=== PATIENT | male | born 1980 | race Caucasian/White ===

== ENCOUNTER 2019-06-25 10:49 | Emergency (ER) | payer BC, OTHER ==
[~2019-06-25 10:49] MED LIST: EPINEPHrine 1:10,000 1 MG/10 ML Syringe ONE; Midazolam 1 MG/ML 5 ML SDV ONE; Propofol 200 MG/20 ML SDV ONE; Sodium Bicarbonate 8.4% 50 MEQ/50 ML Syringe ONE; Succinylcholine 200 MG/10 ML MDV ONE
[2019-06-25] MEDS ORDERED: Sodium Chloride 0.9% 1,000 ML IV SCH (11:30)
--- NOTE | 2019-06-25 11:32 | EDM.PDOC ---
ED HPI GENERAL MEDICAL PROBLEM - General Chief Complaint: Neurological Problem Stated Complaint: [facility] Time Seen by Provider: 06/25/19 10:50 Source of Information: Reports: EMS, Family History Limitations: Reports: Altered Mental Status (Patient is) - History of Present Illness INITIAL COMMENTS - FREE TEXT/NARRATIVE: 39-year-old male arrives in the ED unresponsive. Apparently family members found him in the basement in his bed and could not arouse him this morning. Apparently he went out for a few drinks last night and no one is sure when he came back home. He shouldn't apparently has leukemia and is currently receiving chemotherapy in [place]. It's unclear at this time what type of leukemia. Also unclear when he last received chemotherapy. Paramedics got a O2 sat of 88- 90% on room air. He had a nasal trumpet inserted and an airway to keep his tongue off the back of his throat. Given supplemental oxygen with bag mask. Patient has shown no signs of life in terms of response to painful stimuli. He appears cool to touch. Heart rate is in the 140s. Blood sugar tested by paramedics was 113 Onset: Today, Unknown/Unsure Duration: Other (Unknown) Location: Reports: Other (Arrives unresponsive.) Quality: Reports: Other (Arrives in the ED and response to painful stimuli) Severity: Severe Improves with: Reports: Other (No response to painful or verbal stimuli.) Context: Reports: Other (Found unresponsive in his bed by family members this morning. Paramedics suggest that he seemed to be having intermittent twitching like he might have been seizure in.). 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 (see below) (Only supplemental oxygen.) - Related Data Allergies Allergy/AdvReac Type Severity Reaction Status Date / Time ampoteracin b Allergy Other Uncoded 06/25/19 11:28 micofungin Allergy Other Uncoded 06/25/19 11:28 Home Meds: Home Meds Acyclovir 400 mg PO BID 06/25/19 [History] Albuterol Sulfate [Albuterol Sulfate Hfa] 2 puff IH DAILY PRN 06/25/19 [History] Baclofen 10 mg PO BID 06/25/19 [History] Doxycycline [Doxycycline Hyclate] 100 mg PO DAILY 06/25/19 [History] Fluticasone Propionate [Flovent HFA] 220 mcg INH BID 06/25/19 [History] Fluticasone/Salmeterol [Advair 250-50 Diskus] 1 each IH BID 06/25/19 [History] Hydrocortisone 10 mg PO BEDTIME 06/25/19 [History] Hydrocortisone 20 mg PO DAILY 06/25/19 [History] LORazepam [Ativan] 0.5 mg PO BID 06/25/19 [History] Metoprolol Succinate 50 mg PO DAILY 06/25/19 [History] Montelukast [Singulair] 10 mg PO DAILY 06/25/19 [History] Ondansetron [Zofran ODT] 4 mg PO Q6H PRN 06/25/19 [History] Posaconazole [Noxafil] 300 mg PO DAILY 06/25/19 [History] Rosuvastatin [Crestor] 5 mg PO DAILY 06/25/19 [History] Ruxolitinib Phosphate [Jakafi] 5 mg PO BID 06/25/19 [History] Sertraline [Zoloft] 150 mg PO DAILY 06/25/19 [History] Sulfamethoxazole/Trimethoprim [Bactrim 400-80 MG] 1 each PO DAILY 06/25/19 [ History] Testosterone 20.25 gm TOP DAILY 06/25/19 [History] Ursodiol 600 mg PO BID 06/25/19 [History] Zolpidem [Ambien] 5 mg PO BEDTIME 06/25/19 [History] buPROPion [Wellbutrin] 75 mg PO BID 06/25/19 [History] oxyCODONE ER [OxyCONTIN] 10 mg PO Q12H PRN 06/25/19 [History] Past Medical History Oncologic (Cancer) History: Reports: Leukemia Social & Family History - Living Situation & Occupation Living situation: Reports: Occupation: Employed ED ROS GENERAL - Review of Systems Review Of Systems: Unable To Obtain (Patient is unresponsive to verbal and physical stimuli.) - Physical Exam Exam: See Below Exam Limited By: Altered Mental Status (Unresponsive to verbal and physical stimuli.) General Appearance: Other (Comatose. Very cool to touch.) Eye Exam: Bilateral Eye: Other (Pupils were 7 mm and equal bilaterally with no gaze palsy. No nystagmus to suggest seizure activity. No response to light stimulation before being paralyzed.) Throat/Mouth: Other (Large tongue. A creamy mucus obscuring the airway and posterior oropharynx which was suctioned before intubation.). No: Normal Oropharynx Head Exam: Atraumatic, Normocephalic, Other Neck: Normal Inspection (No overt signs of head or facial trauma.), Supple, Non- Tender Respiratory/Chest: Respiratory Distress, Other (O2 sats were 88-90% on room air. Breathing very shallowly 19-20/m.) Cardiovascular: No Edema (Sinus tachycardia 1 12/m.), No Gallop, No JVD, No Murmur, No Rub, Tachycardia GI/Abdominal: Distended (No bowel sounds were heard. Abdomen appears distended and is diffusely tympanitic to percussion.), Abnormal Bowel Sounds, Other. No: No Abnormal Bruit, Rigid (Male) Exam: No Hernia Neuro Exam (Abbreviated): Other (Comatose. No response to verbal or physical stimulation.) DTR: 0: Bicep (R), Bicep (L), Tricep (L), Patella (R), Patella (L), Achilles (R) , Achilles (L) Extremities: Normal Inspection, Normal Range of Motion, Non-Tender, Other (No SIGNS OF TRAUMA TO ANY OF HIS EXTREMITIES.) Skin Exam: Cool, Other (Feels cold to touch.) Endotracheal Intubation - Endotracheal Intubation Time of Intubation: 14:15 ET Intubation Indication: Airway Protection Preparation: Suction, Balloon Tested, BVM Set Up, Difficult Airway Equip Airway Assessment: Obese, Large Tongue Pre-Oxygenation: Assisted with BVM, 100% FiO2 Anesthesia Meds: Midazolam (2 mg), Succinylcholine (160 mg) Placement: Orotracheal, Complicated Placement Cords Visualized: Grade 3 (Due to very large tongue) ETT Size In mm: 8.5 Number of Attempts: Other: (4) Confirmed By: CO2 Indicator, Bilateral Breath Sounds, Chest Xray Tube Secured By: By RT Endotracheal Intubation Comment: ET tube tube secured at 25 cm corner of the right lip. Chest x-ray reveals it to be a good 3 cm above the jovany. EKG INTERPRETATION EKG Date: 06/25/19 Time: 12:14 Rhythm: NSR Rate (Beats/Min): 71 [place]: Normal P-Wave: Enlarged (Suspect right atrial enlargement.) QRS: Other (Borderline criteria for left ventricular hypertrophy pattern.) ST-T: Elevated (ST segment is elevated in leads V5 and V6 the apex of the heart. There is otherwise identified few surgery early repolarization pattern which skews the ST segment and I do not believe represents ischemia. Cardiac markers will be assessed.) QT: Normal EKG Interpretation Comments: Borderline ECG Course - Vital Signs Last Recorded V/S: Last Vital Signs Temp 37.0 C 06/25/19 12:29 Pulse 68 06/25/19 12:29 Resp 18 06/25/19 12:29 BP 121/81 06/25/19 12:29 Pulse Ox 100 06/25/19 12:29 - Orders/Labs/Meds Orders: Active Orders 24 hr Category Date Time Status Blood Glucose Check, Bedside [RC] ONETIME Care 06/25/19 11:27 Active EKG Documentation Completion [RC] STAT Care 06/25/19 11:41 Active Chest 1V Frontal [CR] Stat Exams 06/25/19 11:20 Taken CULTURE BLOOD [BC] Stat Lab 06/25/19 12:21 Received CULTURE BLOOD [BC] Stat Lab 06/25/19 12:59 Received Sodium Chloride 0.9% [Normal Saline] 1,000 ml Med 06/25/19 11:30 Active IV ASDIRECTED Blood Culture x2 Reflex Set [OM.PC] Stat Oth 06/25/19 11:27 Ordered Medication Orders Sodium Chloride (Normal Saline) 1,000 mls @ 150 mls/hr IV ASDIRECTED ROSY Last Admin: 06/25/19 11:54 Dose: 150 mls/hr Labs: Laboratory Tests 06/25/19 06/25/19 06/25/19 Range/Units 10:59 10:59 10:59 WBC 10.87 H (4.23-9.07) K/mm3 RBC 4.90 (4.63-6.08) M/mm3 Hgb 16.0 (13.7-17.5) gm/L Hct 49.5 (40.1-51.0) % MCV 101.0 H (79.0-92.2) fl MCH 32.7 H (25.7-32.2) pg MCHC 32.3 (32.2-35.5) g/dl RDW Std Deviation 58.7 H (35.1-43.9) fL Plt Count 384 H (163-337) K/mm3 MPV 9.6 (9.4-12.3) fl Neutrophils % (Manual) 75 H (40-60) % Band Neutrophils % 0 (0-10) % Lymphocytes % (Manual) 12 L (20-40) % Atypical Lymphs % 0 % Monocytes % (Manual) 11 H (2-10) % Eosinophils % (Manual) 2 (0.8-7.0) % Basophils % (Manual) 0 L (0.2-1.2) Platelet Estimate Adequate Poikilocytosis 1+ slight Macrocytosis 2+ moderate RBC Morph Comment Not Reportable ESR (0-15) mm/hr Puncture Site ABG pH (7.35-7.45) ABG pCO2 (35.0-45.0) mmHg ABG pO2 (80.0-100.0) mmHg ABG HCO3 (22.0-26.0) meq/L ABG O2 Saturation (96.0-97.0) % ABG Base Excess (-2-2.0) Abhijit Test A-a Gradient mmHg O2 Delivery Device FiO2 (21.00-100.00) % Tidal Volume cc PEEP cmH20 Sodium 141 (136-145) mEq/L Potassium 5.3 H (3.5-5.1) mEq/L Chloride 103 (98-107) mEq/L Carbon Dioxide 22 (21-32) mEq/L Anion Gap 21.3 H (5-15) BUN 15 (7-18) mg/dL Creatinine 1.3 (0.7-1.3) mg/dL Est Cr Clr Drug Dosing TNP Estimated GFR (MDRD) > 60 (>60) mL/min BUN/Creatinine Ratio 11.5 L (14-18) Glucose 126 H (74-106) mg/dL Serum Osmolality 318 H (280-300) mosm/kg Lactic Acid (0.4-2.0) mmol/L Calcium 9.2 (8.5-10.1) mg/dL Magnesium (1.8-2.4) mg/dl Total Bilirubin 0.3 (0.2-1.0) mg/dL AST 66 H (15-37) U/L ALT 121 H (16-63) U/L Alkaline Phosphatase 81 (46-116) U/L CK-MB (CK-2) (0-3.6) ng/ml Troponin I (0.00-0.056) ng/mL C-Reactive Protein 1.7 H* (<1.0) mg/dL NT-Pro-B Natriuret Pep (0-125) pg/mL Total Protein 8.1 (6.4-8.2) g/dl Albumin 4.2 (3.4-5.0) g/dl Globulin 3.9 gm/dL Albumin/Globulin Ratio 1.1 (1-2) Urine Color (Yellow) Urine Appearance (Clear) Urine pH (5.0-8.0) Ur Specific [place] (1.005-1.030) Urine Protein (Negative) Urine Glucose (UA) (Negative) Urine Ketones (Negative) Urine Occult Blood (Negative) Urine Nitrite (Negative) Urine Bilirubin (Negative) Urine Urobilinogen (0.2-1.0) Ur Leukocyte Esterase (Negative) Urine RBC (0-5) /hpf Urine WBC (0-5) /hpf Ur Squamous Epith Cells (0-5) /hpf Amorphous Sediment (NOT SEEN) /hpf Urine Bacteria (FEW) /hpf Urine Mucus (FEW) /hpf Urine Opiates Screen (LTLMHY=257) Ur Buprenorphine Scrn (CUTOFF=10) Ur Oxycodone Screen (KDE2KM=876) Urine Methadone Screen (ERQ4JS=979) Ur Propoxyphene Screen (YLQHEJ=083) Ur Barbiturates Screen (EBLRSE=088) Ur Tricyclics Screen (NDWDRZ=591) Ur Phencyclidine Scrn (CUTOFF=25) Ur Amphetamine Screen (VFSYSF=414) U Methamphetamines Scrn (YYTZPQ=124) U Benzodiazepines Scrn (RCAVQC=237) U Cocaine Metab Screen (XKHSGM=251) U Marijuana (THC) Screen (CUTOFF=50) Ethyl Alcohol (0.00) gm% Ketones 0.3 (0.0-0.3) mM 06/25/19 06/25/19 06/25/19 Range/Units 10:59 10:59 10:59 WBC (4.23-9.07) K/mm3 RBC (4.63-6.08) M/mm3 Hgb (13.7-17.5) gm/L Hct (40.1-51.0) % MCV (79.0-92.2) fl MCH (25.7-32.2) pg MCHC (32.2-35.5) g/dl RDW Std Deviation (35.1-43.9) fL Plt Count (163-337) K/mm3 MPV (9.4-12.3) fl Neutrophils % (Manual) (40-60) % Band Neutrophils % (0-10) % Lymphocytes % (Manual) (20-40) % Atypical Lymphs % % Monocytes % (Manual) (2-10) % Eosinophils % (Manual) (0.8-7.0) % Basophils % (Manual) (0.2-1.2) Platelet Estimate Poikilocytosis Macrocytosis RBC Morph Comment ESR (0-15) mm/hr Puncture Site ABG pH (7.35-7.45) ABG pCO2 (35.0-45.0) mmHg ABG pO2 (80.0-100.0) mmHg ABG HCO3 (22.0-26.0) meq/L ABG O2 Saturation (96.0-97.0) % ABG Base Excess (-2-2.0) Abhijit Test A-a Gradient mmHg O2 Delivery Device FiO2 (21.00-100.00) % Tidal Volume cc PEEP cmH20 Sodium (136-145) mEq/L Potassium (3.5-5.1) mEq/L Chloride (98-107) mEq/L Carbon Dioxide (21-32) mEq/L Anion Gap (5-15) BUN (7-18) mg/dL Creatinine (0.7-1.3) mg/dL Est Cr Clr Drug Dosing Estimated GFR (MDRD) (>60) mL/min BUN/Creatinine Ratio (14-18) Glucose (74-106) mg/dL Serum Osmolality (280-300) mosm/kg Lactic Acid (0.4-2.0) mmol/L Calcium (8.5-10.1) mg/dL Magnesium 2.3 (1.8-2.4) mg/dl Total Bilirubin (0.2-1.0) mg/dL AST (15-37) U/L ALT (16-63) U/L Alkaline Phosphatase (46-116) U/L CK-MB (CK-2) 18.8 H (0-3.6) ng/ml Troponin I < 0.017 (0.00-0.056) ng/mL C-Reactive Protein (<1.0) mg/dL NT-Pro-B Natriuret Pep 33 (0-125) pg/mL Total Protein (6.4-8.2) g/dl Albumin (3.4-5.0) g/dl Globulin gm/dL Albumin/Globulin Ratio (1-2) Urine Color (Yellow) Urine Appearance (Clear) Urine pH (5.0-8.0) Ur Specific [place] (1.005-1.030) Urine Protein (Negative) Urine Glucose (UA) (Negative) Urine Ketones (Negative) Urine Occult Blood (Negative) Urine Nitrite (Negative) Urine Bilirubin (Negative) Urine Urobilinogen (0.2-1.0) Ur Leukocyte Esterase (Negative) Urine RBC (0-5) /hpf Urine WBC (0-5) /hpf Ur Squamous Epith Cells (0-5) /hpf Amorphous Sediment (NOT SEEN) /hpf Urine Bacteria (FEW) /hpf Urine Mucus (FEW) /hpf Urine Opiates Screen (TNEFIO=876) Ur Buprenorphine Scrn (CUTOFF=10) Ur Oxycodone Screen (FWX7RG=704) Urine Methadone Screen (IRC1NR=262) Ur Propoxyphene Screen (KNZELK=500) Ur Barbiturates Screen (OCDEKQ=857) Ur Tricyclics Screen (GCEAPG=846) Ur Phencyclidine Scrn (CUTOFF=25) Ur Amphetamine Screen (STGDCB=097) U Methamphetamines Scrn (DTYZCT=491) U Benzodiazepines Scrn (SNUTPF=026) U Cocaine Metab Screen (NYMZSB=339) U Marijuana (THC) Screen (CUTOFF=50) Ethyl Alcohol 0.05 (0.00) gm% Ketones (0.0-0.3) mM 06/25/19 06/25/19 06/25/19 Range/Units 11:25 11:35 11:35 WBC (4.23-9.07) K/mm3 RBC (4.63-6.08) M/mm3 Hgb (13.7-17.5) gm/L Hct (40.1-51.0) % MCV (79.0-92.2) fl MCH (25.7-32.2) pg MCHC (32.2-35.5) g/dl RDW Std Deviation (35.1-43.9) fL Plt Count (163-337) K/mm3 MPV (9.4-12.3) fl Neutrophils % (Manual) (40-60) % Band Neutrophils % (0-10) % Lymphocytes % (Manual) (20-40) % Atypical Lymphs % % Monocytes % (Manual) (2-10) % Eosinophils % (Manual) (0.8-7.0) % Basophils % (Manual) (0.2-1.2) Platelet Estimate Poikilocytosis Macrocytosis RBC Morph Comment ESR (0-15) mm/hr Puncture Site Lt radial ABG pH 7.20 L (7.35-7.45) ABG pCO2 55.3 H (35.0-45.0) mmHg ABG pO2 110.0 H (80.0-100.0) mmHg ABG HCO3 20.6 L (22.0-26.0) meq/L ABG O2 Saturation 97.2 H (96.0-97.0) % ABG Base Excess -8.1 L (-2-2.0) Abhijit Test Positive A-a Gradient 179 mmHg O2 Delivery Device Ac FiO2 50.00 (21.00-100.00) % Tidal Volume 650.0 cc PEEP 5.0 cmH20 Sodium (136-145) mEq/L Potassium (3.5-5.1) mEq/L Chloride (98-107) mEq/L Carbon Dioxide (21-32) mEq/L Anion Gap (5-15) BUN (7-18) mg/dL Creatinine (0.7-1.3) mg/dL Est Cr Clr Drug Dosing Estimated GFR (MDRD) (>60) mL/min BUN/Creatinine Ratio (14-18) Glucose (74-106) mg/dL Serum Osmolality (280-300) mosm/kg Lactic Acid (0.4-2.0) mmol/L Calcium (8.5-10.1) mg/dL Magnesium (1.8-2.4) mg/dl Total Bilirubin (0.2-1.0) mg/dL AST (15-37) U/L ALT (16-63) U/L Alkaline Phosphatase (46-116) U/L CK-MB (CK-2) (0-3.6) ng/ml Troponin I (0.00-0.056) ng/mL C-Reactive Protein (<1.0) mg/dL NT-Pro-B Natriuret Pep (0-125) pg/mL Total Protein (6.4-8.2) g/dl Albumin (3.4-5.0) g/dl Globulin gm/dL Albumin/Globulin Ratio (1-2) Urine Color Yellow (Yellow) Urine Appearance Clear (Clear) Urine pH 5.5 (5.0-8.0) Ur Specific [place] 1.010 (1.005-1.030) Urine Protein Negative (Negative) Urine Glucose (UA) Negative (Negative) Urine Ketones Negative (Negative) Urine Occult Blood 1+ H (Negative) Urine Nitrite Negative (Negative) Urine Bilirubin Negative (Negative) Urine Urobilinogen 0.2 (0.2-1.0) Ur Leukocyte Esterase Negative (Negative) Urine RBC 5-10 H (0-5) /hpf Urine WBC 0-5 (0-5) /hpf Ur Squamous Epith Cells 0-5 (0-5) /hpf Amorphous Sediment Few H (NOT SEEN) /hpf Urine Bacteria Few (FEW) /hpf Urine Mucus Moderate H (FEW) /hpf Urine Opiates Screen Negative (FWZKOW=234) Ur Buprenorphine Scrn Negative (CUTOFF=10) Ur Oxycodone Screen Presumptive positive H (PSH2UA=980) Urine Methadone Screen Negative (JDL4GF=428) Ur Propoxyphene Screen Negative (UADTAC=577) Ur Barbiturates Screen Negative (BKZHSZ=371) Ur Tricyclics Screen Presumptive positive H (ILUCNT=879) Ur Phencyclidine Scrn Negative (CUTOFF=25) Ur Amphetamine Screen Negative (ZQNEAK=019) U Methamphetamines Scrn Negative (FMSHDQ=971) U Benzodiazepines Scrn Presumptive positive H (RTWGLR=318) U Cocaine Metab Screen Negative (XIHCNS=049) U Marijuana (THC) Screen Presumptive positive H (CUTOFF=50) Ethyl Alcohol (0.00) gm% Ketones (0.0-0.3) mM 06/25/19 06/25/19 06/25/19 Range/Units 12:32 12:59 12:59 WBC (4.23-9.07) K/mm3 RBC (4.63-6.08) M/mm3 Hgb (13.7-17.5) gm/L Hct (40.1-51.0) % MCV (79.0-92.2) fl MCH (25.7-32.2) pg MCHC (32.2-35.5) g/dl RDW Std Deviation (35.1-43.9) fL Plt Count (163-337) K/mm3 MPV (9.4-12.3) fl Neutrophils % (Manual) (40-60) % Band Neutrophils % (0-10) % Lymphocytes % (Manual) (20-40) % Atypical Lymphs % % Monocytes % (Manual) (2-10) % Eosinophils % (Manual) (0.8-7.0) % Basophils % (Manual) (0.2-1.2) Platelet Estimate Poikilocytosis Macrocytosis RBC Morph Comment ESR 27 H (0-15) mm/hr Puncture Site Rt radial ABG pH 7.32 L (7.35-7.45) ABG pCO2 45.2 H (35.0-45.0) mmHg ABG pO2 101.0 H (80.0-100.0) mmHg ABG HCO3 22.5 (22.0-26.0) meq/L ABG O2 Saturation 97.7 H (96.0-97.0) % ABG Base Excess -3.3 L (-2-2.0) Abhijit Test A-a Gradient 200 mmHg O2 Delivery Device Ac FiO2 50.00 (21.00-100.00) % Tidal Volume 650.0 cc PEEP 5.0 cmH20 Sodium (136-145) mEq/L Potassium (3.5-5.1) mEq/L Chloride (98-107) mEq/L Carbon Dioxide (21-32) mEq/L Anion Gap (5-15) BUN (7-18) mg/dL Creatinine (0.7-1.3) mg/dL Est Cr Clr Drug Dosing Estimated GFR (MDRD) (>60) mL/min BUN/Creatinine Ratio (14-18) Glucose (74-106) mg/dL Serum Osmolality (280-300) mosm/kg Lactic Acid 3.4 H (0.4-2.0) mmol/L Calcium (8.5-10.1) mg/dL Magnesium (1.8-2.4) mg/dl Total Bilirubin (0.2-1.0) mg/dL AST (15-37) U/L ALT (16-63) U/L Alkaline Phosphatase (46-116) U/L CK-MB (CK-2) (0-3.6) ng/ml Troponin I (0.00-0.056) ng/mL C-Reactive Protein (<1.0) mg/dL NT-Pro-B Natriuret Pep (0-125) pg/mL Total Protein (6.4-8.2) g/dl Albumin (3.4-5.0) g/dl Globulin gm/dL Albumin/Globulin Ratio (1-2) Urine Color (Yellow) Urine Appearance (Clear) Urine pH (5.0-8.0) Ur Specific [place] (1.005-1.030) Urine Protein (Negative) Urine Glucose (UA) (Negative) Urine Ketones (Negative) Urine Occult Blood (Negative) Urine Nitrite (Negative) Urine Bilirubin (Negative) Urine Urobilinogen (0.2-1.0) Ur Leukocyte Esterase (Negative) Urine RBC (0-5) /hpf Urine WBC (0-5) /hpf Ur Squamous Epith Cells (0-5) /hpf Amorphous Sediment (NOT SEEN) /hpf Urine Bacteria (FEW) /hpf Urine Mucus (FEW) /hpf Urine Opiates Screen (NVWCGG=679) Ur Buprenorphine Scrn (CUTOFF=10) Ur Oxycodone Screen (UUY2YT=848) Urine Methadone Screen (TQP3UR=354) Ur Propoxyphene Screen (HZBYFO=724) Ur Barbiturates Screen (NUNVGY=163) Ur Tricyclics Screen (XBDMIZ=212) Ur Phencyclidine Scrn (CUTOFF=25) Ur Amphetamine Screen (WWDFOI=544) U Methamphetamines Scrn (QDJMMP=036) U Benzodiazepines Scrn (NYVGCM=557) U Cocaine Metab Screen (EXPCQR=131) U Marijuana (THC) Screen (CUTOFF=50) Ethyl Alcohol (0.00) gm% Ketones (0.0-0.3) mM Meds: Medications Generic Name Dose Route Start Last Admin Trade Name Freq PRN Reason Stop Dose Admin Sodium Chloride 1,000 mls @ 150 mls/hr 06/25/19 11:30 06/25/19 11:54 Normal Saline IV 150 mls/hr ASDIRECTED ROSY Administration Discontinued Medications Generic Name Dose Route Start Last Admin Trade Name Freq PRN Reason Stop Dose Admin Hydrocortisone Sodium Succinate 100 mg 06/25/19 12:28 06/25/19 12:37 Solu-Cortef IVPUSH 06/25/19 12:29 100 mg ONETIME ONE Administration Vecuronium [place] 11 mg 06/25/19 12:40 06/25/19 12:45 Vecuronium IVPUSH 06/25/19 12:41 11 mg ONETIME ONE Administration - Radiology Interpretation Free Text/Narrative:: 39-year-old male presents to the ED unresponsive and comatose. He is cold to touch. Pupils are 7 mm and equal bilaterally with sluggish response to light. O2 sats were 88% even with oxygen assist. It appears he is not able to support his gag reflex. 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 Problems. He goes back to [place] every 8 weeks for phonophoresis. He is due to go back in about 2-1/2 weeks. Last night apparently went out of fear few drinks. reports that she helped him downstairs about 11:30 last night and he was in good spirits. She states that he takes OxyContin twice daily for pain response and is been very responsible with his medications. His daughter went down to get him some water about 10:00 this morning and found him unresponsive to verbal stimuli. He states he was also diaphoretic. Patient's and attended him and found him unresponsive and called 911. Paramedics identified O2 sats of 88-90% on room air. They thought he was perhaps twitching in his lower extremities that he may have been seizure eating for a period of time. I found no nystagmus on my exam to suggest seizure activity. Patient required aggressive management of his upper airway as he was no longer able to support his airway. Shallow rapid respirations. Patient is not known to be diabetic. Patient thus required intubation which proved to be extremely difficult due to large size tongue and 8 for battery in my laryngoscope. On fourth attempt I was able to get him intubated with a #8-1/2 Chinese ET tube. Chest x-ray confirms adequate position about 3 cm above the jovany. An air entry to both lung schmidt. He is now currently on the ventilator with a tidal volume of 650. Weight is at 16/min with FiO2 of 50% and PEEP of 5. She'll be going to CT shortly for CT of the head. Labs have been drawn [place] catheters been placed urine has been sent for drug screen and analysis. Rectal temperature is yet to be done but the patient does feel quite cool to touch. - Re-Assessments/Exams Free Text/Narrative Re-Assessment/Exam: 06/25/19 11:32: These are the initial ABGs. PH was 7.20. PCO2 was elevated at 55.3. PaO2 was 110. Adjustments made to ventilator settings with an increase of ventilator rate to 20/m from 16/m to blow off a little more CO2. Repeat ABGs in one half hour. 06/25/19 12:11 Labs are starting to come back. White count is 10.87 differential pending. Hemoglobin is 16.0 with hematocrit of 49.5. MCV is 101.0. 384,000. Urinalysis which was a catheterized specimen shows 5-10 RBCs but no signs of an infective process. Urine drug screen is presumptively positive for oxycodone try cyclic antidepressants benzodiazepines and marijuana. Blood alcohol was 0.05 g percent. She takes OxyContin twice daily. Benzodiazepines are likely from what we gave him IV Versed. CT scan of the brain reveals no intracranial bleeding or mass effect. There is mild mucosal thickening within the posterior ethmoid and posterior nasal cavity most likely relating to nasal trumpet insertion. Diffuse mild atrophy is appreciated in the brain which is more than one would usually anticipated in a patient this age. Possibly secondary to chemotherapy medications. Total temperature is 37. Vital signs are stable with O2 sats 100%. Heart rate is 70/m BP is 121/81. 06/25/19 12:28 patient's med list is now in the computer and he is on multiple antidepressant medications. He also has Ambien 5 at bedtime. Is also steroid- dependent. I will give him 100 mg of Solu-Cortef at this time. 06/25/19 12:51 Second ABGs reveal an improved pH of 7.32 with a PCO2 of 45.2. PO2 is 101. Bicarbonate was 22.5. Sats are 97.7%. Sodium is 141 with a potassium of 5.3. Chloride is 103 with a bicarbonate 22. Anion gap is elevated at 21.3. BUN is 15 with a creatinine of 1.3. GFR is greater than 60. BUN / creatinine ratio is 11.5. Glucose is 126. Serum osmolality slightly elevated at 318. Calcium was 9.2 magnesium is 2.3. AST is 66 ELT is 121 alkaline phosphatase days is 81. C-reactive protein is 1.7. BNP is 33. Total protein is 8.1. 06/25/19 13:05 C-reactive protein has returned at 1.7. BNP is 33. Lactic acid is pending. I have placed a call to [facility] in [place] but 1 call nurse is busy at this time and will call me back when she can. She believes they do have a bed in ICU. 06/25/19 13;50: Unable to speak with the javascript ui developer extruder operator horizontal at [facility]. Dr. Torres has accepted care. Patient will be transported to that facility by [facility]. The transport team is here and waiting. No changes made to ventilation orders. Strict invaded to Dr. duvall. All labs and CTs and x-rays will be sent to [facility].The sedimentation rate came back at 27. Lactic acid came back elevated at 3.4. Departure - Departure Time of Disposition: 14:05 Disposition: DC/Tfer to Acute Hospital 02 Condition: Serious Clinical Impression: Coma of unknown cause - Discharge Information *PRESCRIPTION DRUG MONITORING PROGRAM REVIEWED*: No *COPY OF PRESCRIPTION DRUG MONITORING REPORT IN PATIENT NE: No Instructions: Coma Referrals: PCP,Unknown [Primary Care Provider] - Forms: ED Department Discharge Additional Instructions: Patient transferred to [facility] in [facility] intensive care unit under the care of Dr. Torres. -[employer] on-call. Patient transferred by [employer]. Spoken to the several times and at this time the reason for his presentation in, is unclear. I suspect he may have had repetitive seizures causing current comatose state requires further neurological evaluation by way of MRI bedside EEG monitoring. Possible interaction with antidepressants and alcohol to lower his seizure threshold. Patient has no history of seizure disorder. Critical Care Note - Critical Care Note Total Time (mins): 90 - My Orders Last 24 Hours: My Active Orders 06/25/19 11:20 Chest 1V Frontal [CR] Stat 06/25/19 11:27 Blood Glucose Check, Bedside [RC] ONETIME Blood Culture x2 Reflex Set [OM.PC] Stat 06/25/19 11:30 Sodium Chloride 0.9% [Normal Saline] 1,000 ml IV ASDIRECTED 06/25/19 11:41 EKG Documentation Completion [RC] STAT 06/25/19 12:21 CULTURE BLOOD [BC] Stat 06/25/19 12:59 CULTURE BLOOD [BC] Stat - Assessment/Plan Last 24 Hours: My Active Orders 06/25/19 11:20 Chest 1V Frontal [CR] Stat 06/25/19 11:27 Blood Glucose Check, Bedside [RC] ONETIME Blood Culture x2 Reflex Set [OM.PC] Stat 06/25/19 11:30 Sodium Chloride 0.9% [Normal Saline] 1,000 ml IV ASDIRECTED 06/25/19 11:41 EKG Documentation Completion [RC] STAT 06/25/19 12:21 CULTURE BLOOD [BC] Stat 06/25/19 12:59 CULTURE BLOOD [BC] Stat
--- NOTE | 2019-06-25 12:09 | CT ---
Head CT Technique: Multiple axial sections through the brain were obtained. Intravenous contrast was not utilized. Comparison: No prior intracranial imaging is available. Findings: Sulci over the convexities are mildly prominent for age. Asymmetry in size of the lateral ventricles are noted which is felt to be a normal variant. No abnormal parenchymal densities are seen. No evidence of intracranial hemorrhage. No midline shift or mass effect is seen. Mucosal thickening is seen within the posterior ethmoid sinuses and posterior nasal cavity. No acute calvarial abnormality is appreciated. Mastoid sinuses that are seen appear clear. Impression: 1. Mucosal thickening within the posterior ethmoid and posterior nasal cavity most likely relating to change from recent intubation. 2. Mild atrophy which is more than usually seen in a patient of this age. This can be seen with previous trauma, certainly medications as well as drug abuse. 3. No acute intracranial abnormality is seen. Diagnostic code #2
[2019-06-25] MEDS ORDERED: Hydrocortisone Sodium Succinate 100 MG/2 ML SDV IVPUSH ONE (12:28)
--- NOTE | 2019-06-26 09:22 | CR ---
Chest: Portable supine view of the chest was obtained. Comparison: No prior chest imaging. Endotracheal tube is noted. Tip lies at the lower level the clavicles. Nasogastric tube is seen which terminates in the area of the stomach. Linear densities are seen within both lung bases compatible with atelectasis. Lungs otherwise are clear of acute change. Heart size is normal. Tortuous thoracic aorta is seen. Impression: 1. Endotracheal tube with tip at the lower level of the clavicles. 2. Nasogastric tube with tip lying in the area of the stomach. 3. Mild bibasilar atelectasis. Diagnostic code #3
== END 2019-06-25 14:00 ==
LOC: JD.ED 10:49
DX: R40.20 Unspecified coma (principal); Z79.899 Other long term (current) drug therapy; Z88.8 Allergy status to other drugs, medicaments and biological substances
CPT/HCPCS: 31500; 36415; 36600; 51702; 70450; 71045; 80053; 80306; 80320; 81001; 82009; 82553; 82803; 83605; 83735; 83880; 83930; 84484; 85007; 85027; 85652; 86140; 87040; 92950; 93005; 96365; 96366; 96375; 96376; 99291; 99292; J0171; J0330; J1720; J2250; J2704; J7040; 93010; G0480; J3490